=== PATIENT | female | born 1965 | race Hispanic/Latino ===

== ENCOUNTER → 2022-09-05 | Outpatient (CLI) | payer BC | END | disposition home or self-care (01) | LOC: RAH 10:06 | PROVIDERS: ATTEND Obstetrics & Gynecology | DX: Z12.31 Encounter for screening mammogram for malignant neoplasm of breast (principal) | CPT/HCPCS: 77067 ==

== ENCOUNTER → 2023-10-02 | Outpatient (CLI) | payer BC | END | disposition home or self-care (01) | LOC: RAH 15:02 | PROVIDERS: ATTEND Obstetrics & Gynecology | DX: Z12.31 Encounter for screening mammogram for malignant neoplasm of breast (principal) | CPT/HCPCS: 77067 ==